=== PATIENT | female | born 1960 | race Caucasian/White ===

== ENCOUNTER 2017-01-26 15:33 | Emergency (ER) | END 2017-01-26 17:30 | disposition home or self-care (01) | DX: J02.9 Acute pharyngitis, unspecified (principal); Z79.84 Long term (current) use of oral hypoglycemic drugs | CPT/HCPCS: 71010; Z7502 ==

== ENCOUNTER 2017-07-13 12:57 | Emergency (ER) | END 2017-07-13 17:07 | disposition home or self-care (01) ==

== ENCOUNTER 2018-03-17 13:32 | Emergency (ER) | END 2018-03-17 17:29 | disposition home or self-care (01) ==